=== PATIENT | female | born 2000 | race Hispanic/Latino ===

== ENCOUNTER → 2024-05-02 | Day surgery (SDC) | payer OTHER ==
[2024-05-01 15:16] LABS: BASOPHILS % 0.3 % (0.0-1.0); EOSINOPHILS # (AUTO) 0.1 (0.0-0.4); EOSINOPHILS % 0.8 % (0.0-6.0); HEMATOCRIT 38.1 % (34.2-44.1); HEMOGLOBIN 11.8 g/dL (12.0-16.0); LYMPHOCYTES # (AUTO) 1.5 (1.0-3.2); LYMPHOCYTES % 21.1 % (18.0-39.1); MEAN CORPUSCULAR HEMOGLOBIN 27.1 pg (28-32); MEAN CORPUSCULAR VOLUME 87.4 fL (81-99); MONOCYTES # (AUTO) 0.5 (0.2-0.8); MONOCYTES % 7.6 % (4.4-11.3); NEUTROPHILS % 70.1 % (38.7-80.0); PLATELET COUNT 308 x10e3/uL (140-360); RED BLOOD COUNT 4.36 x10e6/uL (3.6-5.1); WHITE BLOOD COUNT 7.11 x10e3/uL (4.8-10.8)
[~2024-05-02] MED LIST: ACETAMINOPHEN 1000 MG/100 ML 100 ML IV ONE; DEXAMETHASONE SOD PHOS INJ 4 MG/ML SDV ONE; FENTANYL CITRATE/PF 100MCG/2 ML INJ ONE; KETOROLAC TROMETHAMINE 30 MG/ML VIAL ONE; LIDOCAINE HCL 2% LOCAL INJ 5 ML SDV VIAL INJ ONE; ONDANSETRON HCL INJ 2MG/ML 2ML 2 MG/ML VIAL ONE; PROPOFOL IV EMULSION 10 MG/ML 20 ML VIAL ONE; SEVOFLURANE INHAL SOLN 250 ML PEN BTL ONE; SUGAMMADEX SODIUM 200 MG/2 ML VIAL IV ONE; ULTRAM 50MG50 MG PO
[2024-05-02] MEDS: LACTATED RINGER'S 1,000 ML ONE (13:27)
[2024-05-02] MEDS: CEFAZOLIN SODIUM 2 GM ONE (13:30)
[2024-05-02 15:27] VITALS: TEMP 97.2
[2024-05-02] MEDS: TRAMADOL HCL 50 MG TAB ONE (16:05)
[2024-05-02 16:45] VITALS: BP 118/76; PULSE 72; RESP 16; O2SAT 96
== END | disposition home or self-care (01) ==
LOC: OR 12:10
PROVIDERS: ATTEND Surgery
DX: K43.9 Ventral hernia without obstruction or gangrene (principal); Z01.812 Encounter for preprocedural laboratory examination; Z86.2 Personal history of diseases of the blood and blood-forming organs and certain disorders involving the immune mechanism
CPT/HCPCS: 36415 ×2; 49591; 84702; 85025; J0131; J1100; J1885; J2003; J2405; J2704; J3010; J7121